=== PATIENT | female | born 1970 | race Caucasian/White ===

== ENCOUNTER 2017-12-25 09:53 | Outpatient (CLI) | payer OTHER ==
[~2017-12-25 09:53] MED LIST: LYRICA200 MG
== END 2017-12-25 10:09 | disposition home or self-care (01) ==
LOC: LAB 09:53
DX: E78.2 Mixed hyperlipidemia (principal); R50.9 Fever, unspecified

== ENCOUNTER → 2018-03-17 11:36 | Outpatient (CLI) | payer OTHER | END | disposition home or self-care (01) | LOC: LAB 11:36 | DX: J11.1 Influenza due to unidentified influenza virus with other respiratory manifestations (principal); J20.9 Acute bronchitis, unspecified ==

== ENCOUNTER 2018-03-19 13:14 | Outpatient (CLI) | payer OTHER | END 2018-03-19 13:41 | disposition home or self-care (01) | LOC: LAB 13:14 | DX: J11.1 Influenza due to unidentified influenza virus with other respiratory manifestations (principal); J06.9 Acute upper respiratory infection, unspecified; N95.1 Menopausal and female climacteric states; I10 Essential (primary) hypertension; E83.51 Hypocalcemia; A64 Unspecified sexually transmitted disease; R97.8 Other abnormal tumor markers ==

== ENCOUNTER 2018-04-08 14:10 | Outpatient (CLI) | payer OTHER | END 2018-04-08 14:14 | disposition home or self-care (01) | LOC: MRI 14:10 | DX: G61.89 Other inflammatory polyneuropathies (principal); G89.29 Other chronic pain | CPT/HCPCS: 73721 ==

== ENCOUNTER 2018-04-19 05:54 | Day surgery (SDC) | payer OTHER | END 2018-04-19 12:00 | disposition home or self-care (01) | LOC: U 05:54 → CIR.AMB 05:54 | DX: M23.211 Derangement of anterior horn of medial meniscus due to old tear or injury, right knee (principal); M17.11 Unilateral primary osteoarthritis, right knee; M12.261 Villonodular synovitis (pigmented), right knee; M22.01 Recurrent dislocation of patella, right knee; M22.2X1 Patellofemoral disorders, right knee ==

== ENCOUNTER 2018-06-14 14:03 | Outpatient (CLI) | payer OTHER | END 2018-06-14 14:13 | disposition home or self-care (01) | LOC: RAD 501 14:03 | DX: M25.561 Pain in right knee (principal) ==

== ENCOUNTER 2018-09-23 22:04 | Emergency (ER) | payer OTHER ==
[~2018-09-23] VITALS: Ht 170.2 cm; Wt 61.7 kg
[2018-09-24] MEDS ORDERED: ULTRACET PO (00:45)
== END 2018-09-24 00:55 | disposition home or self-care (01) ==
LOC: ER 22:04
DX: S40.012A Contusion of left shoulder, initial encounter (principal); S80.01XA Contusion of right knee, initial encounter; V49.9XXA Car occupant (driver) (passenger) injured in unspecified traffic accident, initial encounter; Y93.89 Activity, other specified; Y92.488 Other paved roadways as the place of occurrence of the external cause; Y99.8 Other external cause status

== ENCOUNTER 2018-12-14 11:16 | Outpatient (CLI) | payer OTHER ==
[~2018-12-14 11:16] MED LIST changes: +ULTRACET PO
== END 2018-12-14 11:19 | disposition home or self-care (01) ==
LOC: RAD 11:16
DX: M25.561 Pain in right knee (principal)

== ENCOUNTER 2020-03-23 08:46 | Outpatient (CLI) | payer OTHER | END 2020-03-23 08:56 | disposition HB | LOC: SONOGRAMA 08:46 | DX: Q51.818 Other congenital malformations of uterus (principal); R10.31 Right lower quadrant pain; R10.11 Right upper quadrant pain ==

== ENCOUNTER → 2020-08-14 | Outpatient (CLI) | payer OTHER | END | disposition home or self-care (01) | LOC: LAB 06:58 | PROVIDERS: ATTEND Student in an Organized Health Care Education/Training Program | DX: E78.2 Mixed hyperlipidemia (principal); I10 Essential (primary) hypertension; E11.9 Type 2 diabetes mellitus without complications; E55.9 Vitamin D deficiency, unspecified; Z12.11 Encounter for screening for malignant neoplasm of colon ==

== ENCOUNTER 2022-12-05 14:14 | Outpatient (CLI) | payer OTHER | END 2022-12-05 14:18 | disposition home or self-care (01) | LOC: RAD 14:14 | PROVIDERS: ATTEND Student in an Organized Health Care Education/Training Program | DX: M25.561 Pain in right knee (principal) ==

== ENCOUNTER 2024-03-01 06:05 | Day surgery (SDC) | payer OTHER ==
[2024-03-01] MEDS ORDERED: fentaNYL CITRATE 50 MCG/ML AMPUL IV PUSH ONE (09:00)
[2024-03-01] MEDS ORDERED: DIPHENHYDRAMINE HCL 50 MG/ML VIAL 1ML IV ONE (09:00)
[2024-03-01] MEDS ORDERED: MIDAZOLAM HCL 2 MG/2 ML VIAL IV ONE (09:00)
== END 2024-03-01 09:50 | disposition home or self-care (01) ==
LOC: AMB-ENDOS 06:05
PROVIDERS: ATTEND Colon & Rectal Surgery
DX: K62.82 Dysplasia of anus (principal); K63.5 Polyp of colon; Z88.6 Allergy status to analgesic agent

== ENCOUNTER 2024-08-12 07:58 | Outpatient (CLI) | payer OTHER | END 2024-08-12 08:00 | disposition home or self-care (01) | LOC: TOM 07:58 | PROVIDERS: ATTEND Specialist | DX: R10.2 Pelvic and perineal pain (principal) ==

== ENCOUNTER 2024-09-01 09:08 | Outpatient (CLI) | payer OTHER | END 2024-09-01 09:10 | disposition home or self-care (01) | LOC: SONOGRAMA 09:08 | PROVIDERS: ATTEND General Practice | DX: I83.892 Varicose veins of left lower extremity with other complications (principal); G89.11 Acute pain due to trauma ==

== ENCOUNTER 2024-09-01 13:24 | Outpatient (CLI) | payer OTHER | END 2024-09-01 13:25 | disposition home or self-care (01) | LOC: NUCLEAR 13:24 | PROVIDERS: ATTEND General Practice | DX: I83.892 Varicose veins of left lower extremity with other complications (principal); G89.11 Acute pain due to trauma ==